=== PATIENT | male | born 1950 | race Two or more races ===

== ENCOUNTER 2022-08-18 16:48 | Emergency (ER) | payer MEDICARE, OTHER ==
[~2022-08-18] VITALS: Ht 175.3 cm; Wt 91.0 kg
[2022-08-18 17:03] VITALS: BP 118/72
== END 2022-08-18 19:52 | disposition left against medical advice (07) ==
LOC: ER 16:48
DX: M54.50 Low back pain, unspecified (principal); M79.605 Pain in left leg; M79.604 Pain in right leg; E11.9 Type 2 diabetes mellitus without complications; Z53.21 Procedure and treatment not carried out due to patient leaving prior to being seen by health care provider

== ENCOUNTER 2024-05-23 23:08 | Emergency (ER) | payer MEDICARE, OTHER ==
[~2024-05-23] VITALS: Ht 177.8 cm; Wt 100.0 kg
[2024-05-24] VITALS: RESP 14; O2SAT 95
[2024-05-24] MEDS: DexAMETHasone SOD PHOS 10MG/1ML VIAL INJ IV ONE (00:02)
[2024-05-24 00:05] LABS: Basophils # (auto) 0 10 ^3/uL (0-0.2); Basophils % (auto) 0.6 % (0.0-2.0); Eosinophils # (auto) 0 10 ^3/uL (0-0.8); Eosinophils % (auto) 0.2 % (0.0-7.0); Hemoglobin 15.3 g/dL (13.5-17.5); Lymphocytes # (auto) 0.5 10 ^3/uL (0.4-5.4); Lymphocytes % (auto) 8.1 % (10.0-50.0); Mean Corpuscular Hemoglobin 29.9 pg (28.0-32.0); Mean Corpuscular Hgb Conc. 33.9 g/dL (32.0-36.0); Mean Corpuscular Volume 88.4 fL (80.0-100.0); Monocytes # (auto) 0.4 10 ^3/uL (0-1.3); Monocytes % (auto) 7.7 % (0.0-12.0); Neutrophils # (auto) 4.8 10 ^3/uL (1.6-8.6); Neutrophils % (auto) 83.4 % (37.0-80.0); Platelet Count (auto) 129 10^3/uL (140-450); Red Cell Distribution Width 14.9 % (11.8-14.3); White Blood Cell 5.7 10^3/uL (4.4-10.8)
[2024-05-24] MEDS: IPRATROPIUM BROM 0.5 MG/2.5ML INH SOL NEB ONE (00:07)
[2024-05-24] MEDS: ALBUTEROL SULF 2.5 MG/0.5ML(0.5%) NEB SOLN NEB ONE (00:07)
[2024-05-24 00:24] LABS: Alanine Aminotransferase 20 U/L (7-40); Albumin 4.5 g/dL (3.2-4.8); Alkaline Phosphatase 43 U/L (46-116); Anion Gap 9 (5-15); Aspartate Aminotransferase 24 U/L (13-40); BUN/Creatinine Ratio 12.8 (10.0-20.0); Bilirubin, Total 1.6 mg/dL (0.2-1.0); Blood Urea Nitrogen 10 mg/dL (9-23); Calcium 9.3 mg/dL (8.7-10.4); Carbon Dioxide 26 mmol/L (20-30); Chloride 106 mmol/L (98-107); Glucose 134 mg/dL (74-106); Potassium 3.9 mmol/L (3.5-5.1); Sodium 141 mmol/L (136-145); Total Protein 6.9 g/dL (5.7-8.2)
[2024-05-24 00:27] LABS: Lactic Acid w/Reflex 3.3 mmol/L (0.4-2.0)
[2024-05-24 00:47] LABS: Rapid Influenza A Negative (Negative); Rapid Influenza B Negative (Negative)
[2024-05-24 00:50] LABS: COVID19 ANTIGEN SOFIA FIA POSITIVE (NEGATIVE)
[2024-05-24] MEDS: SODIUM CHLORIDE 0.9% 500 ML IV ONE (01:43)
[2024-05-24] MEDS: ASPirin 325 MG TAB PO ONE (02:22)
[2024-05-24] MEDS: IOHEXOL 350 MG/ML 100ML IJ ONE (03:33)
[2024-05-24] MEDS: SODIUM CHLORIDE 0.9% 1,000 ML IV ONE (03:33)
[2024-05-24 04:05] VITALS: RESP 14; O2SAT 95
[2024-05-24 05:45] VITALS: BP 147/65; PULSE 66; RESP 13; TEMP 98.5; O2SAT 95
== END 2024-05-24 06:17 | disposition short-term general hospital (02) ==
LOC: EDBD 23:08 → ER 23:08
DX: U07.1 COVID-19 (principal); A41.89 Other specified sepsis; R79.89 Other specified abnormal findings of blood chemistry; R09.02 Hypoxemia; I10 Essential (primary) hypertension; I25.2 Old myocardial infarction; I25.10 Atherosclerotic heart disease of native coronary artery without angina pectoris; E11.9 Type 2 diabetes mellitus without complications
CPT/HCPCS: 36415; 71045; 71275; 80053; 83605; 83880; 84484; 85025; 87426; 87804; 93005; 94640; 96361; 96374; 99291; J1100; J7030; Q9967